=== PATIENT | male | born 1990 | race African-American/Black ===

== ENCOUNTER 2023-02-24 23:32 | Emergency (ER) | payer MEDICAID ==
[~2023-02-24] VITALS: Ht 182.9 cm; Wt 82.0 kg
[2023-02-24 23:39] VITALS: O2SAT 98
[2023-02-24] MEDS ORDERED: IBUPROFEN 400MG TABLET PO ONE (23:45)
[2023-02-25 00:26] LABS: BASOPHILS % 0.8 % (0.0-2.0); EOSINOPHILS % 2.9 % (0.0-5.0); HEMATOCRIT. 41.9 % (42.0-52.0); HEMOGLOBIN. 14.2 g/dL (14.0-18.0); LYMPHOCYTES % 26.8 % (20.0-50.0); MEAN CORPUSCULAR HEMOGLOBIN 27.6 pg (28.0-32.0); MEAN CORPUSCULAR HGB CONC 33.8 g/dL (31.0-37.0); MEAN CORPUSCULAR VOLUME 81.6 fL (80.0-94.0); MEAN PLATELET VOLUME 8.8 fl (7.4-10.4); MONOCYTES % 11.5 % (2.0-8.0); PLATELET 228 x1000/uL (130-400); RED BLOOD CELL COUNT 5.13 mill/uL (4.7-6.1); RED CELL DISTRIBUTION WIDTH 14.1 % (11.6-14.6); WHITE BLOOD COUNT 6.1 x1000/uL (4.5-11.0)
[2023-02-25] MEDS ORDERED: NAPR-1074 MT (00:27)
[2023-02-25 00:44] LABS: CHLORIDE 102 mEq/L (98-107); INDEX HEMOLYSI 1 (1-3); INDEX ICTERIC 1 (1-4); INDEX LIPEMIC 1 (1-3); POTASSIUM 3.7 mEq/L (3.5-5.1); SODIUM 137 mEq/L (136-145)
[2023-02-25] MEDS ORDERED: KETOROLAC 30MG/ML VIAL IM ONE (00:45)
[2023-02-25 00:51] LABS: ALANINE AMINOTRANSFERASE 84 IU/L (13-61); ALBUMIN 4.1 g/dL (3.4-5.0); ASPARTATE AMINOTRANSFERASE 34 IU/L (15-37); BILIRUBIN TOTAL 0.8 mg/dL (0.1-1.0); CALCIUM 9.1 mg/dL (8.5-10.1); CARBON DIOXIDE 28 mEq/L (21-32); GLUCOSE 93 mg/dL (70-105); PROTEIN TOTAL 7.9 g/dL (6.0-8.3); UREA NITROGEN BLOOD 15 mg/dL (7-21)
[2023-02-25] MEDS ORDERED: ACETAMINOPHEN 325MG TABLET PO ONE (01:00)
[2023-02-25] MEDS ORDERED: BACL-141 MT (01:00)
[2023-02-25 01:18] VITALS: BP 142/90; PULSE 78; RESP 13; TEMP 97.9
== END 2023-02-25 01:19 | disposition home or self-care (01) ==
LOC: ER 23:32
DX: S29.011A Strain of muscle and tendon of front wall of thorax, initial encounter (principal); J45.909 Unspecified asthma, uncomplicated; X58.XXXA Exposure to other specified factors, initial encounter; Y93.89 Activity, other specified; Y92.89 Other specified places as the place of occurrence of the external cause; Y99.8 Other external cause status
CPT/HCPCS: 99285; 71045; 36415; 93005; 80053; 85025; 96372; J1885